=== PATIENT | male | born 1990 | race Caucasian/White ===

== ENCOUNTER 2017-11-07 22:50 | Emergency (ER) | payer OTHER, SELFPAY ==
[2017-11-07 22:52] VITALS: BP 146/85; PULSE 89; RESP 18; TEMP 36.9; O2SAT 97; BMI 29.6
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
[2017-11-07] MEDS: Diphth,Pertuss(Acell),Tet Vac 0.5 ML Vial IM (23:22)
[2017-11-07] MEDS: BACITRACIN 15 GM Tube 1 APPLIC TOPICAL (23:23)
[2017-11-07 23:38] VITALS: BP 127/92; PULSE 67; O2SAT 97
== END 2017-11-07 23:40 | disposition home or self-care (01) ==
LOC: ED 23:23
PROVIDERS: Emergency Provider Emergency Medicine
DX: S51.811A Laceration without foreign body of right forearm, initial encounter (principal); X58.XXXA Exposure to other specified factors, initial encounter; Y93.89 Activity, other specified; Y92.413 State road as the place of occurrence of the external cause; Y99.9 Unspecified external cause status; Z23 Encounter for immunization
CPT/HCPCS: 90715; 99282